=== PATIENT | female | born 1960 ===

== ENCOUNTER 2018-10-02 08:57 | Emergency (ER) | payer OTHER ==
[2018-10-02 08:57] VITALS: BMI 24.2
[2018-10-02 09:06] VITALS: RESP 18
[2018-10-02] MEDS ORDERED: Sodium Chloride 0.9% 1,000 ML IV STA (09:23)
[2018-10-02] MEDS ORDERED: Lidocaine 5% Patch TD STA (09:25)
[2018-10-02] MEDS ORDERED: Lidocaine 5% Patch TD ONE (09:31)
--- NOTE | 2018-10-02 09:32 | ED PDOC ---
HPI: General Adult Time Seen by Provider: 10/02/18 09:11 Chief Complaint (Nursing): Upper Extremity Problem/Injury Chief Complaint (Provider): Neck pain and left humerus pain History Per: Patient History/Exam Limitations: no limitations Onset/Duration Of Symptoms: Other (x2 months) Current Symptoms Are (Timing): Still Present Additional Complaint(s): 58 year old female, with no past medical history, presents to the ED with diffuse neck pain in the back and left humerus pain for 2 months. Patient denies new fall or injury but states pain is worse with movement. Denies numbness, tingling, chest pain, shortness of breath, or pain anywhere else. Patient took Tylenol with no relief. She denies any allergies. PMD: Bertrand Hdz Past Medical History Reviewed: Historical Data, Nursing Documentation, Vital Signs Vital Signs: Last Vital Signs Temp 98.0 F 10/02/18 09:05 Pulse 58 L 10/02/18 09:05 Resp 18 10/02/18 09:05 BP 145/88 10/02/18 09:05 Pulse Ox 100 10/02/18 09:05 - Medical History PMH: No Chronic Diseases - Surgical History Surgical History: (x3 ) - Family History Family History: States: Unknown Family Hx - Home Medications Home Medications: Ambulatory Orders Medication Instructions Recorded Ibuprofen [Motrin] 600 mg PO TID 7 Days tab 10/02/18 Lidocaine 5% [Lidoderm] 1 ea TD DAILY PRN #5 patch 10/02/18 - Allergies Allergies/Adverse Reactions: Allergies Allergy/AdvReac Type Severity Reaction Status Date / Time No Known Allergies Allergy Verified 10/02/18 09:22 Review of Systems Cardiovascular: Negative for: Chest Pain Respiratory: Negative for: Shortness of Breath Musculoskeletal: Positive for: Neck Pain (diffuse), Arm Pain (Left humerus pain) Neurological: Negative for: Weakness, Numbness, Other (tingling) Physical Exam - Reviewed Nursing Documentation Reviewed: Yes Vital Signs Reviewed: Yes - Physical Exam Appears: Positive for: Non-toxic, No Acute Distress Head Exam: Positive for: ATRAUMATIC, NORMOCEPHALIC Skin: Positive for: Normal Color, Warm, Dry Eye Exam: Positive for: Normal appearance Neck: Negative for: Pain On Movement Of Neck (Mild tenderness to the biltateral lateral aspect of the neck; full ROM; no cervical spine tenderness) Cardiovascular/Chest: Positive for: Regular Rate, Rhythm Respiratory: Positive for: Normal Breath Sounds. Negative for: Wheezing, Respiratory Distress Back: Positive for: Normal Inspection. Negative for: L CVA Tenderness, R CVA Tenderness Extremity: Positive for: Normal ROM, Tenderness (Mild tenderness to the left humerus; no tenderness to the left shoulder) Neurologic/Psych: Positive for: Alert, Oriented. Negative for: Motor/Sensory Deficits - ECG O2 Sat by Pulse Oximetry: 100 (RA) Pulse Ox Interpretation: Normal - Radiology X-Ray: Read By Radiologist X-Ray Interpretation: No Acute Disease - Progress ED Course And Treament: 1158: Stable. AAOx3. Pain free. Tolerated PO. Fu with pcp. Medical Decision Making Medical Decision Making: Initial Plan: --Cervical spine X-ray --Valium 5mg PO --Left humerus X-ray Scribe Attestation: Documented by Remington Uribe acting as a scribe for Hal Lopez MD. Provider Scribe Attestation: All medical record entries made by the Scribe were at my direction and personally dictated by me. I have reviewed the chart and agree that the record accurately reflects my personal performance of the history, physical exam, medical decision making, and the department course for this patient. I have also personally directed, reviewed, and agree with the discharge instructions and disposition. Disposition - Clinical Impression Clinical Impression: Muscle pain - Patient ED Disposition Is Patient to be Admitted: No Counseled Patient/Family Regarding: Studies Performed, Diagnosis, Need For Followup, Rx Given - Disposition Referrals: [facility] [Outside] - 10/03/18 Disposition: Routine/Home Disposition Time: 11:59 Condition: STABLE Additional Instructions: Return if not better in 3 days. Prescriptions: Ibuprofen [Motrin] 600 mg PO TID 7 Days tab Lidocaine 5% [Lidoderm] 1 ea TD DAILY PRN #5 patch PRN Reason: Pain, Moderate (4-7) Instructions: Muscle and Bone Pain (DC) Forms: [facility] (Upper Sorbian) Print Language: WOLOF
--- NOTE | 2018-10-02 10:01 | RAD ---
PROCEDURE: Radiographs of the left humerus. HISTORY: pain COMPARISON: None. FINDINGS: BONES: Normal. No fracture or focal lesion. SOFT TISSUES: Normal. OTHER FINDINGS: None. IMPRESSION: Normal radiographs of left humerus.
--- NOTE | 2018-10-02 10:02 | RAD ---
Date of service: 10/02/2018 PROCEDURE: Cervical Spine Radiographs. HISTORY: Pain. COMPARISON: None available. FINDINGS: BONES: Alignment maintained. No fracture. Dens Intact. Mild anterior spondylosis C5-C6 DISC SPACES: Slight narrowing at C6-7 with anterior disc bordering calcification. SOFT TISSUES: Normal. No prevertebral soft tissue swelling. OTHER FINDINGS: Mild C7 cervical rib formation development left greater than right. IMPRESSION: No fracture or lytic lesion. Senescent changes as above. Developmental variant as well
[2018-10-02 12:11] VITALS: BP 132/78; PULSE 60; TEMP 98; O2SAT 99
== END 2018-10-02 12:19 | disposition home or self-care (01) ==
LOC: H.ER 08:57
DX: M25.532 Pain in left wrist (principal); M54.9 Dorsalgia, unspecified
CPT/HCPCS: 72052; 73060; 96372; 99284; J1885